=== PATIENT | female | born 1985 | race Hispanic/Latino ===

== ENCOUNTER 2017-12-27 14:15 | Emergency (ER) | payer SELFPAY ==
[2017-12-27 15:10] LABS: Urine Blood 2+ (NEG); Urine Glucose NEGATIVE (NEG); Urine Protein 1+ (NEG)
--- NOTE | 2017-12-27 16:06 | RAD REPORT ---
EXAM DESCRIPTION: CT - Stone Protocol - 12/27/2017 3:40 pm CLINICAL HISTORY: Abdominal pain. Suprapubic pain COMPARISON: None. TECHNIQUE: Computed axial tomography of the abdomen pelvis was obtained without oral or IV contrast. Lack of IV and oral contrast limits evaluation of solid organs, bowel, and vessels. Coronal reformat chinmay images were obtained and reviewed. All CT scans are performed using dose optimization technique as appropriate and may include automated exposure control or mA/KV adjustment according to patient size. FINDINGS: A renal calculus is not seen. An ureteral calculus is not noted. A bladder calculus is not present. The liver, spleen, pancreas and adrenals appear grossly normal There is no evidence of diverticulitis. A tiny umbilical hernia is present. A right ventral hernia within the upper pelvis has a neck of 4.7 centimeters. It contains multiple lo ops of nondilated small bowel. IMPRESSION: Negative for a genitourinary calculus A right ventral hernia within the upper pelvis has a neck of 4.7 centimeters. It contains multiple lo ops of nondilated small bowel.
[2017-12-27 16:26] LABS: Urine Amorphous Sediment TRACE /HPF (NONE SEEN); Urine Bacteria 20-50 /HPF (<20); Urine Culture Reflex Order REFLEXED; Urine RBC 20-50 /HPF (NONE SEEN)
--- NOTE | 2017-12-27 16:43 | ER ---
Nurse's Notes [facility] Name: Vanessa Salinas Age: 32 yrs Sex: Female : 1985 Arrival Date: 12/27/2017 Time: 14:17 Bed 8 Private MD: Diagnosis: Urinary tract infection, site not specified;Ventral hernia without obstruction or gangrene Presentation: 12/27 14:44 Presenting complaint: Patient states: "I thought I had a UTI, but my doctor called in ss some Bactrim and it's been two days, but it hasn't gone away and it's usually gone by now. My son's dad has been out of town for a while and we have been having sex, so I thought that if we stopped, it might go away, but it hasn't." c/o suprapubic pain when walking and itching discomfort while urinating. Transition of care: patient was not received from another setting of care. Onset of symptoms was December 20, 2017. Risk Assessment: Do you want to hurt yourself or someone else? Patient reports no desire to harm self or others. Initial Sepsis Screen: Does the patient meet any 2 criteria? No. Patient's initial sepsis screen is negative. Does the patient have a suspected source of infection? No. Patient's initial sepsis screen is negative. Care prior to arrival: None. 14:44 Method Of Arrival: Ambulatory 14:44 Acuity: MARYCHUY 4 ss Triage Assessment: 14:45 General: Appears in no apparent distress. comfortable, Behavior is calm, cooperative, bp appropriate for age. Pain: Complains of pain in pelvis. 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 - Social history:: Smoking status: Patient/guardian denies using tobacco. - Ebola Screening: : Patient denies exposure to infectious person Patient denies travel to an Ebola-affected area in the 21 days before illness onset. Screenin:45 Abuse screen: Denies threats or abuse. Denies injuries from another. Nutritional bp screening: No deficits noted. Tuberculosis screening: No symptoms or risk factors identified. Fall Risk None identified. Assessment: 14:50 General: Appears in no apparent distress. comfortable, Behavior is calm, cooperative, bp appropriate for age. Pain: Complains of pain in pelvis. Neuro: Level of Consciousness is awake, alert, obeys commands, Oriented to person, place, time, situation, Appropriate for age. Cardiovascular: Rhythm is sinus rhythm. Respiratory: Airway is patent Respiratory effort is even, unlabored, Respiratory pattern is regular, symmetrical. GI: No signs and/or symptoms were reported involving the gastrointestinal system. : Reports burning with urination. EENT: No deficits noted. Derm: No signs and/or symptoms reported regarding the dermatologic system. Musculoskeletal: Circulation, motion, and sensation intact. Range of motion: intact in all extremities. 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 bp 16:00 Reassessment: Patient appears in no apparent distress at this time. Patient and/or hb family updated on plan of care and expected duration. Pain level reassessed. Patient is alert, oriented x 3, equal unlabored respirations, skin warm/dry/pink. 16:58 Reassessment: Patient appears in no apparent distress at this time. Patient and/or hb family updated on plan of care and expected duration. Pain level reassessed. Patient is alert, oriented x 3, equal unlabored respirations, skin warm/dry/pink. Vital Signs: 14:44 BP 111 / 57; Pulse 80; Resp 14; Temp 98.4(O); Pulse Ox 98% on R/A; Weight 90.72 kg; ss Height 5 ft. 0 in. (152.40 cm); Pain 0/10; 15:29 BP 105 / 57; Pulse 53; Resp 14; Pulse Ox 95% ; bp 14:44 Body Mass Index 39.06 (90.72 kg, 152.40 cm) ED Course: 14:17 Patient arrived in ED. tw3 14:28 Mart[facility]ab [facility]C [facility]. snw 14:28 Karri Villagomez MD is Attending Physician. snw 14:41 Esa Linares, KAREN is Primary Nurse. bp 14:44 Arm band placed on right wrist. ss 14:45 Patient has correct armband on for positive identification. Bed in low position. Call bp light in reach. Side rails up X2. 14:48 Triage completed. ss 15:[address] via wheelchair. nj 15:40 CT completed. Patient tolerated procedure well. Patient moved back from CT. nj 15:40 CT Stone Protocol In Process Unspecified. EDMS Administered Medications: 16:57 Drug: Rocephin (cefTRIAXone) 1 grams Route: IM; Site: right gluteus; hb 17:13 Follow up: Response: No adverse reaction Outcome: 16:43 Discharge ordered by MD. swenson 17:16 Patient left the ED. hb Addendum: 12/30/2017 07:43 Addendum: Culture Results: Positive urine culture. No further action required. Bacteria i w sensitive to prescribed antibiotic. Signatures: Dispatcher [employer] EDMS Martine Saab, RAJESH FIRER WATERTENDER-Csnw Eden Adkins, RN KAREN Cheri Greene RN RN ss Linda Barth RN RN Yahir Reed, Ning 3 Esa Linares RN RN bp
--- NOTE | 2017-12-27 16:44 | EDPHYS ---
Physician Documentation [facility] Name: Vanessa Salinas Age: 32 yrs Sex: Female : 1985 Arrival Date: 12/27/2017 Time: 14:17 Bed 8 Private MD: ED Physician Karri Villagomez HPI: 12/27 15:33 This 32 yrs old Female presents to ER via Ambulatory with complaints of snw Urinary Problem. 15:33 The patient presents with abdominal distention distal to umbilicus. Onset: The snw symptoms/episode began/occurred gradually, 1 week(s) ago. Associated signs and symptoms: none. The symptoms are described as vague. Severity of pain: At its worst the pain was mild. The patient has experienced a previous episode. The patient has not recently seen a physician. 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 - Social history:: Smoking status: Patient/guardian denies using tobacco. - Ebola Screening: : Patient denies exposure to infectious person Patient denies travel to an Ebola-affected area in the 21 days before illness onset. ROS: 15:28 Constitutional: Negative for fever, chills, and weight loss, Eyes: Negative for injury, snw pain, redness, and discharge, ENT: Negative for injury, pain, and discharge, Neck: Negative for injury, pain, and swelling, Cardiovascular: Negative for chest pain, palpitations, and edema, Respiratory: Negative for shortness of breath, cough, wheezing, and pleuritic chest pain, Back: Negative for injury and pain, : Negative for injury, bleeding, discharge, and swelling, + dysuria MS/Extremity: Negative for injury and deformity, Skin: Negative for injury, rash, and discoloration, Neuro: Negative for headache, weakness, numbness, tingling, and seizure. 15:28 : Negative for injury, bleeding, discharge, and swelling, + dysuria 15:28 Abdomen/GI: Positive for abdominal pain, abdominal distension. Exam: 15:27 Constitutional: This is a well developed, well nourished patient who is awake, alert, snw and in no acute distress. Head/Face: Normocephalic, atraumatic. Eyes: Pupils equal round and reactive to light, extra-ocular motions intact. Lids and lashes normal. Conjunctiva and sclera are non-icteric and not injected. Cornea within normal limits. Periorbital areas with no swelling, redness, or edema. ENT: Nares patent. No nasal discharge, no septal abnormalities noted. Tympanic membranes are normal and external auditory canals are clear. Oropharynx with no redness, swelling, or masses, exudates, or evidence of obstruction, uvula midline. Mucous membranes moist. Neck: Trachea midline, no thyromegaly or masses palpated, and no cervical lymphadenopathy. Supple, full range of motion without nuchal rigidity, or vertebral point tenderness. No Meningismus. Chest/axilla: Normal chest wall appearance and motion. Nontender with no deformity. No lesions are appreciated. Cardiovascular: Regular rate and rhythm with a normal S1 and S2. No gallops, murmurs, or rubs. Normal PMI, no JVD. No pulse deficits. Respiratory: Lungs have equal breath sounds bilaterally, clear to auscultation and percussion. No rales, rhonchi or wheezes noted. No increased work of breathing, no retractions or nasal flaring. Abdomen/GI: Soft, tender, with normal bowel sounds. No distension or tympany. No guarding or rebound. No evidence of tenderness throughout. ventral hernia noted distal to umbilicus Back: No spinal tenderness. No costovertebral tenderness. Full range of motion. Skin: Warm, dry with normal turgor. Normal color with no rashes, no lesions, and no evidence of cellulitis. MS/ Extremity: Pulses equal, no cyanosis. Neurovascular intact. Full, normal range of motion. Neuro: Awake and alert, GCS 15, oriented to person, place, time, and situation. Cranial nerves II-XII grossly intact. Motor strength 5/5 in all extremities. Sensory grossly intact. Cerebellar exam normal. Normal gait. Psych: Awake, alert, with orientation to person, place and time. Behavior, mood, and affect are within normal limits. Vital Signs: 14:44 BP 111 / 57; Pulse 80; Resp 14; Temp 98.4(O); Pulse Ox 98% on R/A; Weight 90.72 kg; ss Height 5 ft. 0 in. (152.40 cm); Pain 0/10; 15:29 BP 105 / 57; Pulse 53; Resp 14; Pulse Ox 95% ; bp 14:44 Body Mass Index 39.06 (90.72 kg, 152.40 cm) ss MDM: 14:33 Patient medically screened. snw 16:46 Data reviewed: vital signs, nurses notes. Data interpreted: Pulse oximetry: on room air snw is 95 %. Interpretation: acceptable. Counseling: I had a detailed discussion with the patient and/or guardian regarding: the historical points, exam findings, and any diagnostic results supporting the discharge/admit diagnosis, lab results, radiology results, the need for outpatient follow up, to return to the emergency department if symptoms worsen or persist or if there are any questions or concerns that arise at home. Special discussion: Based on the patient's Hx, exam, and Dx evaluation, there is no indication for emergent surgery or inpatient Tx. It is understood by the patient/guardian that if the Sx's persist or worsen they need to return immediately for re-evaluation. Based on the history and exam findings, there is no indication for further emergent testing or inpatient evaluation. I discussed with the patient/guardian the need to see the general surgeon for further evaluation of the symptoms. I discussed with the patient/guardian the need to see the primary care provider for further evaluation of the symptoms. 12/27 14:29 Order name: Urine Microscopic Only; Complete Time: 16:42 snw 12/27 14:57 Order name: Urine Dipstick--Ancillary (enter results); Complete Time: 15:12 ms 12/27 14:57 Order name: Urine --Ancillary (enter results); Complete Time: 15:12 ms 12/27 15:20 Order name: CT Stone Protocol; Complete Time: 16:10 snw 12/27 16:27 Order name: Urine Culture EDMS 12/27 14:29 Order name: Urine Test (obtain specimen); Complete Time: 14:43 snw 12/27 14:29 Order name: Urine Dipstick-Ancillary (obtain specimen); Complete Time: 14:43 snw Administered Medications: 16:57 Drug: Rocephin (cefTRIAXone) 1 grams Route: IM; Site: right gluteus; hb 17:13 Follow up: Response: No adverse reaction hb Disposition: 17:26 Co-signature as Attending Physician, Karri Villagomez MD I agree with the assessment and kdr plan of care. Disposition: 12/27/17 16:43 Discharged to Home. Impression: Urinary tract infection, site not specified, Ventral hernia without obstruction or gangrene. - Condition is Stable. - Discharge Instructions: Hernia, Adult, Urinary Tract Infection, Adult. - Prescriptions for Bentyl 20 mg Oral Tablet - take 1 tablet by ORAL route every 6 hours As needed; 20 tablet. Macrobid 100 mg Oral Capsule - take 1 capsule by ORAL route every 12 hours for 10 days; 20 capsule. - Work release form, Medication Reconciliation Form, Thank You Letter, Antibiotic Education, Prescription Opioid Use form. - Follow up: Private Physician; When: 2 - 3 days; Reason: Recheck today's complaints, Continuance of care, Re-evaluation by your physician. Follow up: Emergency Department; When: As needed; Reason: Worsening of condition. Signatures: Dispatcher [employer] EDNV Karri Villagomez MD MD [facility] Martine Saab, SKILL LABOR-C SKILL LABOR-Csnw Cheri Greene RN RN Linda Barth RN RN hb Corrections: (The following items were deleted from the chart) 15:32 15:28 : Negative for injury, bleeding, discharge, and swelling, snw snw 17:16 16:43 12/27/2017 16:43 Discharged to Home. Impression: Urinary tract infection, site hb not specified; Ventral hernia without obstruction or gangrene. Condition is Stable. Forms are Medication Reconciliation Form, Thank You Letter, Antibiotic Education, Prescription Opioid Use. Follow up: Private Physician; When: 2 - 3 days; Reason: Recheck today's complaints, Continuance of care, Re-evaluation by your physician. Follow up: Emergency Department; When: As needed; Reason: Worsening of condition. snw
[2017-12-27] MEDS ORDERED: CEFTRIAXONE 1000 MG/VIAL ONE (16:55)
== END 2017-12-27 17:16 | disposition home or self-care (01) ==
LOC: ER 14:15
DX: N39.0 Urinary tract infection, site not specified (principal); K43.9 Ventral hernia without obstruction or gangrene; Z88.6 Allergy status to analgesic agent; Z91.040 Latex allergy status; Z91.048 Other nonmedicinal substance allergy status
CPT/HCPCS: 74176; 76377; 81003; 81015; 81025; 87077; 87086; 87088; 87186; 96372; 99284

== ENCOUNTER 2018-02-01 00:50 | Emergency (ER) | payer SELFPAY ==
--- NOTE | 2018-02-01 01:59 | ER ---
Nurse's Notes [facility] Name: Vanessa Salinas Age: 32 yrs Sex: Female : 1985 Arrival Date: 02/01/2018 Time: 00:53 Bed 12 Private MD: Diagnosis: Dental caries; state, incidental Presentation: 02/01 01:14 Presenting complaint: Patient states: she is having left lower jaw pain x 1 week has bb appt with dentist on Friday but pain is too much. Transition of care: patient was not received from another setting of care. Onset of symptoms was January 24, 2018. Risk Assessment: Do you want to hurt yourself or someone else? Patient reports no desire to harm self or others. Initial Sepsis Screen: Does the patient meet any 2 criteria? No. Patient's initial sepsis screen is negative. Does the patient have a suspected source of infection? No. Patient's initial sepsis screen is negative. Care prior to arrival: None. 01:14 Method Of Arrival: Ambulatory bb 01:14 Acuity: MARYCHUY 4 bb Triage Assessment: 01:17 General: Appears uncomfortable, Behavior is calm, cooperative. Pain: Complains of pain bb in left lower jaw Pain currently is 10 out of 10 on a pain scale. EENT: Reports pain in left jaw. Neuro: Level of Consciousness is awake, alert, obeys commands, Oriented to person, place, time, situation. Cardiovascular: No deficits noted. Respiratory: Airway Respiratory effort is even, unlabored, Respiratory pattern is regular, Breath sounds are clear bilaterally. GI: No signs and/or symptoms were reported involving the gastrointestinal system. Derm: Skin is pink, warm \T\ dry. Musculoskeletal: Circulation, motion, and sensation intact. 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 - Social history:: Smoking status: Patient/guardian denies using tobacco, Patient/guardian denies using alcohol, street drugs. - Ebola Screening: : No symptoms or risks identified at this time. Screenin:51 Abuse screen: Denies threats or abuse. Nutritional screening: No deficits noted. bb Tuberculosis screening: No symptoms or risk factors identified. Fall Risk None identified. Assessment: :51 Reassessment: No changes from previously documented assessment. see triage assessment. bb 02:08 Reassessment: Patient is alert, oriented x 3, equal unlabored respirations, skin bb warm/dry/pink. pt verbalized understanding of and agrees to plan of care discharge instructions given pt ambulated with steady gait to exit. Vital Signs: 01:17 BP 120 / 80; Pulse 80; Resp 18 S; Temp 98.9(O); Pulse Ox 97% on R/A; Weight 92.99 kg bb (R); Height 5 ft. 0 in. (152.40 cm) (R); Pain 10/10; 01:17 Body Mass Index 40.04 (92.99 kg, 152.40 cm) bb ED Course: 00:53 Patient arrived in ED. am2 01:16 Triage completed. bb 01:17 Arm band placed on Patient placed in an exam room. bb 01:18 Martine Saab FNP-C is PHCP. snw 01:18 Suzie Huang MD is Attending Physician. snw 01:51 Gladys Guevara RN is Primary Nurse. bb 01:51 Patient has correct armband on for positive identification. Call light in reach. bb 01:51 No provider procedures requiring assistance completed. Patient did not have IV access bb during this emergency room visit. Administered Medications: 01:52 Drug: Augmentin 875 mg Route: PO; bb 02:09 Follow up: Response: No adverse reaction bb Outcome: 01:58 Discharge ordered by . snw 02:09 Discharged to home ambulatory. bb 02:09 Condition: stable 02:09 Discharge instructions given to patient, Instructed on discharge instructions, follow up and referral plans. medication usage, Demonstrated understanding of instructions, follow-up care, medications, Prescriptions given X 3. 02:09 Patient left the ED. bb Signatures: Martine Saab FNP-C ELECTROLYSIS OPERATOR-Csnw Gladys Guevara, RN RN Patricia Hancock am2
--- NOTE | 2018-02-01 01:59 | EDPHYS ---
Physician Documentation [facility] Name: Vanessa Salinas Age: 32 yrs Sex: Female : 1985 Arrival Date: 02/01/2018 Time: 00:53 Bed 12 Private MD: ED Physician Suzie Huang HPI: 02/01 01:50 This 32 yrs old Female presents to ER via Ambulatory with complaints of Dental snw Pain. 01:50 The patient presents with pain. The problem is located in the lower left third molar snw (#17). Onset: The symptoms/episode began/occurred gradually, and became worse today. Duration: The symptoms are continuous. Associated signs and symptoms: The patient has no apparent associated signs or symptoms. Severity of symptoms: At their worst the symptoms were moderate, severe. It is unknown whether or not the patient has had similar symptoms in the past. appt with Dentist scheduled for this Friday. no fever, no vomiting. 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 - Social history:: Smoking status: Patient/guardian denies using tobacco, Patient/guardian denies using alcohol, street drugs. - Ebola Screening: : No symptoms or risks identified at this time. ROS: 01:49 Constitutional: Negative for fever, chills, and weight loss, Eyes: Negative for injury, snw pain, redness, and discharge, ENT: Negative for injury and discharge, + dental pain to left mandibular area Neck: Negative for injury, pain, and swelling, Cardiovascular: Negative for chest pain, palpitations, and edema, Respiratory: Negative for shortness of breath, cough, wheezing, and pleuritic chest pain, Abdomen/GI: Negative for abdominal pain, nausea, vomiting, diarrhea, and constipation, Back: Negative for injury and pain, : Negative for injury, bleeding, discharge, and swelling, MS/Extremity: Negative for injury and deformity, Skin: Negative for injury, rash, and discoloration, Neuro: Negative for headache, weakness, numbness, tingling, and seizure. Exam: 01:48 Constitutional: This is a well developed, well nourished patient who is awake, alert, snw and in no acute distress. Head/Face: Normocephalic, atraumatic. Eyes: Pupils equal round and reactive to light, extra-ocular motions intact. Lids and lashes normal. Conjunctiva and sclera are non-icteric and not injected. Cornea within normal limits. Periorbital areas with no swelling, redness, or edema. Neck: Trachea midline, no thyromegaly or masses palpated, and no cervical lymphadenopathy. Supple, full range of motion without nuchal rigidity, or vertebral point tenderness. No Meningismus. Chest/axilla: Normal chest wall appearance and motion. Nontender with no deformity. No lesions are appreciated. Cardiovascular: Regular rate and rhythm with a normal S1 and S2. No gallops, murmurs, or rubs. Normal PMI, no JVD. No pulse deficits. Respiratory: Lungs have equal breath sounds bilaterally, clear to auscultation and percussion. No rales, rhonchi or wheezes noted. No increased work of breathing, no retractions or nasal flaring. Abdomen/GI: Soft, non-tender, with normal bowel sounds. No distension or tympany. No guarding or rebound. No evidence of tenderness throughout. Back: No spinal tenderness. No costovertebral tenderness. Full range of motion. Skin: Warm, dry with normal turgor. Normal color with no rashes, no lesions, and no evidence of cellulitis. MS/ Extremity: Pulses equal, no cyanosis. Neurovascular intact. Full, normal range of motion. Neuro: Awake and alert, GCS 15, oriented to person, place, time, and situation. Cranial nerves II-XII grossly intact. Motor strength 5/5 in all extremities. Sensory grossly intact. Cerebellar exam normal. Normal gait. Psych: Awake, alert, with orientation to person, place and time. Behavior, mood, and affect are within normal limits. 01:48 ENT: Mouth: is normal, Posterior pharynx: is normal, Dental exam: pain, that is moderate, specifically in the lower left third molar (#17), lower left second molar (#18) and lower left first molar (#19), Voice: is normal. Vital Signs: 01:17 BP 120 / 80; Pulse 80; Resp 18 S; Temp 98.9(O); Pulse Ox 97% on R/A; Weight 92.99 kg bb (R); Height 5 ft. 0 in. (152.40 cm) (R); Pain 10/10; 01:17 Body Mass Index 40.04 (92.99 kg, 152.40 cm) bb MDM: 01:29 Patient medically screened. snw 01:56 Data reviewed: vital signs, nurses notes. Data interpreted: Pulse oximetry: on room air snw is 97 %. Interpretation: normal. Counseling: I had a detailed discussion with the patient and/or guardian regarding: the historical points, exam findings, and any diagnostic results supporting the discharge/admit diagnosis, the presence of at least one elevated blood pressure reading (>120/80) during this emergency department visit, the need for outpatient follow up, for definitive care, to return to the emergency department if symptoms worsen or persist or if there are any questions or concerns that arise at home. Special discussion: I have referred the patient to see his PCP for further evaluation of high blood pressure. Based on the history and exam findings, there is no indication for further emergent testing or inpatient evaluation. I discussed with the patient/guardian the need to see the OB Gyne specialist for further evaluation of the symptoms. I discussed with the patient/guardian the need to see the primary care provider for further evaluation of the symptoms. 02/01 02:03 Order name: Urine Dipstick--Ancillary (enter results) ar5 02/01 01:45 Order name: Urine Test (obtain specimen); Complete Time: 02:02 snw 02/01 01:45 Order name: Urine Dipstick-Ancillary (obtain specimen); Complete Time: 02:02 snw Administered Medications: 01:52 Drug: Augmentin 875 mg Route: PO; bb 02:09 Follow up: Response: No adverse reaction bb Disposition: 06:00 Co-signature as Attending Physician, Suzie Huang MD. ma2 Disposition: 02/01/18 01:58 Discharged to Home. Impression: Dental caries, state, incidental. - Condition is Stable. - Discharge Instructions: Dental Pain, First Trimester of , Diet and Dental Disease. - Prescriptions for chlorhexidine gluconate 0.12 % Mucous Membrane mouthwash - place 15 milliliter by MUCOUS MEMBRANE route 2 times per day after brushing teeth, swish in mouth for 30 seconds then spit out; 480 milliliter. Augmentin 500- 125 mg Oral Tablet - take 1 tablet by ORAL route every 8 hours for 10 days; 30 tablet. Vitamin 27- 0.8 mg Oral Tablet - take 1 tablet by ORAL route once daily; 60 tablet. - Medication Reconciliation Form, Thank You Letter, Antibiotic Education, Prescription Opioid Use form. - Follow up: Private Physician; When: 2 - 3 days; Reason: Recheck today's complaints, Continuance of care, Re-evaluation by your physician. Follow up: Emergency Department; When: As needed; Reason: Worsening of condition. Signatures: Dispatcher [employer] EDMartine Duong FNP-C FNP-Gladys Leon RN RN Suzie Duckworth MD MD ma2 Corrections: (The following items were deleted from the chart) 02:09 01:58 02/01/2018 01:58 Discharged to Home. Impression: Dental caries; state, bb incidental. Condition is Stable. Forms are Medication Reconciliation Form, Thank You Letter, Antibiotic Education, Prescription Opioid Use. Follow up: Private Physician; When: 2 - 3 days; Reason: Recheck today's complaints, Continuance of care, Re-evaluation by your physician. Follow up: Emergency Department; When: As needed; Reason: Worsening of condition. snw
[2018-02-01] MEDS ORDERED: AMOX/K CLAV 875 MG TAB ONE (02:03)
[2018-02-01 03:44] LABS: Urine Blood NEGATIVE (NEG); Urine Glucose NEGATIVE (NEG); Urine Protein TRACE (NEG); Urine Specific Gravity >1.030 (1.005-1.030); Urine pH 5.5 (5.0-7.0)
== END 2018-02-01 02:09 | disposition home or self-care (01) ==
LOC: ER 00:50
DX: K02.9 Dental caries, unspecified (principal); Z33.1 Pregnant state, incidental
CPT/HCPCS: 81003; 99283

== ENCOUNTER 2018-02-07 19:46 | Emergency (ER) | payer OTHER, SELFPAY ==
--- NOTE | 2018-02-07 20:45 | EDPHYS ---
Physician Documentation [facility] Name: Vanessa Salinas Age: 32 yrs Sex: Female : 1985 Arrival Date: 02/07/2018 Time: 19:49 Bed 13 Private MD: ED Physician Rock Dodge HPI: 02/07 20:42 This 32 yrs old Female presents to ER via Ambulatory with complaints of Fall kb Injury. 20:42 Details of fall: The patient fell from an upright position. Onset: The symptoms/episode kb began/occurred at 16:00. Associated injuries: The patient sustained injury to the chest, specifically the diaphragm, pain with movement. Severity of symptoms: At their worst the symptoms were mild, in the emergency department the symptoms are unchanged. The patient has not experienced similar symptoms in the past. The patient has not recently seen a physician. Pt fell up the stairs and hit diaphram area on upper step. c/o pain that is intermittent. Reports she is 6 weeks so she wanted to make sure everything was ok with baby. Denies lower abd pain or vaginal bleeding. 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, Verified, EDC 09/30/2018, Gestational age from LMP: 6 weeks 4 ak1 days Historical: - Allergies: 20:04 NSAIDS; ak1 20:04 Latex, Natural Rubber; ak1 - Home Meds: 20:04 Vitamin Oral [Active]; ak1 - PMHx: 20:04 Avalos's Palsy; ak1 - PSHx: 20:04 ; ak1 ROS: 20:40 Constitutional: Negative for fever, chills, and weight loss, Cardiovascular: Negative kb for chest pain, palpitations, and edema, Respiratory: Negative for shortness of breath, cough, wheezing, and pleuritic chest pain, Back: Negative for injury and pain, MS/Extremity: Negative for injury and deformity, Skin: Negative for injury, rash, and discoloration, Neuro: Negative for headache, weakness, numbness, tingling, and seizure. 20:40 Abdomen/GI: Positive for abdominal pain. Exam: 20:41 Constitutional: This is a well developed, well nourished patient who is awake, alert, kb and in no acute distress. Head/Face: Normocephalic, atraumatic. ENT: Nares patent. No nasal discharge, no septal abnormalities noted. Tympanic membranes are normal and external auditory canals are clear. Oropharynx with no redness, swelling, or masses, exudates, or evidence of obstruction, uvula midline. Mucous membranes moist. Neck: Trachea midline, no thyromegaly or masses palpated, and no cervical lymphadenopathy. Supple, full range of motion without nuchal rigidity, or vertebral point tenderness. No Meningismus. Cardiovascular: Regular rate and rhythm with a normal S1 and S2. No gallops, murmurs, or rubs. Normal PMI, no JVD. No pulse deficits. Respiratory: Lungs have equal breath sounds bilaterally, clear to auscultation and percussion. No rales, rhonchi or wheezes noted. No increased work of breathing, no retractions or nasal flaring. Abdomen/GI: Soft, non-tender, with normal bowel sounds. No distension or tympany. No guarding or rebound. No evidence of tenderness throughout. Back: No spinal tenderness. No costovertebral tenderness. Full range of motion. Skin: Warm, dry with normal turgor. Normal color with no rashes, no lesions, and no evidence of cellulitis. MS/ Extremity: Pulses equal, no cyanosis. Neurovascular intact. Full, normal range of motion. Neuro: Awake and alert, GCS 15, oriented to person, place, time, and situation. Cranial nerves II-XII grossly intact. Motor strength 5/5 in all extremities. Sensory grossly intact. Cerebellar exam normal. Normal gait. 20:41 Chest/axilla: Inspection: normal, Palpation: tenderness, that is mild, of the kb diaphragm. Vital Signs: 20:04 BP 123 / 59; Pulse 89; Resp 18; Temp 98; Pulse Ox 99% on R/A; Weight 90.72 kg; Height 5 ak1 ft. 0 in. (152.40 cm); Pain 7/10; 21:10 BP 114 / 76; Pulse 76; Resp 16; Pulse Ox 100% on R/A; jb4 20:04 Body Mass Index 39.06 (90.72 kg, 152.40 cm) ak1 MDM: 20:17 Patient medically screened. kb 20:41 Data reviewed: vital signs, nurses notes. Data interpreted: Pulse oximetry: on room air kb is 99 %. Interpretation: normal. Counseling: I had a detailed discussion with the patient and/or guardian regarding: the historical points, exam findings, and any diagnostic results supporting the discharge/admit diagnosis, the need for outpatient follow up, a family practitioner, to return to the emergency department if symptoms worsen or persist or if there are any questions or concerns that arise at home. Administered Medications: No medications were administered Disposition: 02/08 05:31 Co-signature as Attending Physician, Rock Dodge MD. rn Disposition: 02/07/18 20:44 Discharged to Home. Impression: Fall on same level from slipping, tripping and stumbling, Contusion of unspecified front wall of thorax. - Condition is Stable. - Discharge Instructions: Musculoskeletal Pain, Chest Contusion, [id number]. - Work release form, Medication Reconciliation Form, Thank You Letter, Antibiotic Education, Prescription Opioid Use form. - Follow up: Emergency Department; When: As needed; Reason: Worsening of condition. Follow up: Private Physician; When: 2 - 3 days; Reason: Recheck today's complaints, Continuance of care, Re-evaluation by your physician. Signatures: Adrianne Jovel, PHYSICAL THERAPIST-C PHYSICAL THERAPIST-Ckb Rock Dodge MD MD rn Krenek, Amber, RN RN ak1 Pj Anderson, KAREN RN jb4 Corrections: (The following items were deleted from the chart) 02/07 20:42 20:41 Constitutional: This is a well developed, well nourished patient who is awake, kb alert, and in no acute distress. Head/Face: Normocephalic, atraumatic. Chest/axilla: Normal chest wall appearance and motion. Nontender with no deformity. No lesions are appreciated. Cardiovascular: Regular rate and rhythm with a normal S1 and S2. No gallops, murmurs, or rubs. Normal PMI, no JVD. No pulse deficits. Respiratory: Lungs have equal breath sounds bilaterally, clear to auscultation and percussion. No rales, rhonchi or wheezes noted. No increased work of breathing, no retractions or nasal flaring. Back: No spinal tenderness. No costovertebral tenderness. Full range of motion. Skin: Warm, dry with normal turgor. Normal color with no rashes, no lesions, and no evidence of cellulitis. MS/ Extremity: Pulses equal, no cyanosis. Neurovascular intact. Full, normal range of motion. Neuro: Awake and alert, GCS 15, oriented to person, place, time, and situation. Cranial nerves II-XII grossly intact. Motor strength 5/5 in all extremities. Sensory grossly intact. Cerebellar exam normal. Normal gait. kb 20:42 20:41 Abdomen/GI: Inspection: abdomen appears normal, Bowel sounds: normal, in all kb quadrants, Palpation: abdomen is soft and non-tender, 21:16 20:10 Urine Dipstick-Ancillary ordered. [facility] 21:16 20:10 Urine Test ordered. jb4 21:18 20:44 02/07/2018 20:44 Discharged to Home. Impression: Fall on same level from jb4 slipping, tripping and stumbling; Contusion of unspecified front wall of thorax. Condition is Stable. Forms are Medication Reconciliation Form, Thank You Letter, Antibiotic Education, Prescription Opioid Use. Follow up: Emergency Department; When: As needed; Reason: Worsening of condition. Follow up: Private Physician; When: 2 - 3 days; Reason: Recheck today's complaints, Continuance of care, Re-evaluation by your physician. kb
--- NOTE | 2018-02-07 20:45 | ER ---
Nurse's Notes [facility] Name: Vanessa Salinas Age: 32 yrs Sex: Female : 1985 Arrival Date: 02/07/2018 Time: 19:49 Bed 13 Private MD: Diagnosis: Fall on same level from slipping, tripping and stumbling;Contusion of unspecified front wall of thorax Presentation: 02/07 20:03 Presenting complaint: Patient states: tripped going up stairs, hitting chest and ak1 epigastric area. pt is 6 weeks . pt denies vaginal bleeding. Transition of care: patient was not received from another setting of care. Onset of symptoms was February 07, 2018. Care prior to arrival: None. 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 Nutritional screening: No deficits noted. jb4 Tuberculosis screening: No symptoms or risk factors identified. Assessment: 21:10 General: Appears in no apparent distress. comfortable, Behavior is calm, cooperative, jb4 appropriate for age. Pain: Complains of pain in epigastric area Pain does not radiate. Pain currently is 7 out of 10 on a pain scale. Quality of pain is described as aching. Neuro: Level of Consciousness is awake, alert, obeys commands, Oriented to person, place, time, situation. Cardiovascular: Patient's skin is warm and dry. Respiratory: Airway is patent Respiratory effort is even, unlabored, Respiratory pattern is regular, symmetrical. GI: No signs and/or symptoms were reported involving the gastrointestinal system. : No signs and/or symptoms were reported regarding the genitourinary system. EENT: No signs and/or symptoms were reported regarding the EENT system. Derm: Skin is intact, Skin is pink, warm \T\ dry. Musculoskeletal: Circulation, motion, and sensation intact. Vital Signs: 20:04 BP 123 / 59; Pulse 89; Resp 18; Temp 98; Pulse Ox 99% on R/A; Weight 90.72 kg; Height 5 ak1 ft. 0 in. (152.40 cm); Pain 7/10; 21:10 BP 114 / 76; Pulse 76; Resp 16; Pulse Ox 100% on R/A; jb4 20:04 Body Mass Index 39.06 (90.72 kg, 152.40 cm) ak1 ED Course: 19:49 Patient arrived in ED. al2 20:04 Triage completed. ak1 20:04 Arm band placed on Patient placed in waiting room. ak1 20:17 Adrian[facility] kb 20:17 Rock Dodge MD is Attending Physician. kb 21:09 Pj Anderson, RN is Primary Nurse. jb4 21:10 Patient has correct armband on for positive identification. Bed in low position. Call jb4 light in reach. Side rails up X 1. Pulse ox on. NIBP on. 21:10 No provider procedures requiring assistance completed. Patient did not have IV access jb4 during this emergency room visit. Administered Medications: No medications were administered Outcome: 20:44 Discharge ordered by MD. kb 21:17 Discharged to home ambulatory. jb4 21:17 Condition: stable 21:17 Discharge instructions given to patient, Instructed on discharge instructions, follow up and referral plans. Demonstrated understanding of instructions, follow-up care. 21:18 Patient left the ED. jb4 Signatures: Adrianne Jovel FNP-C FNP-Ckb Krenek, Amber, RN RN ak1 Pj Anderson, RN RN jb4 Karen Montiel [facility]
== END 2018-02-07 21:18 | disposition home or self-care (01) ==
LOC: ER 19:46
DX: S20.219A Contusion of unspecified front wall of thorax, initial encounter (principal); W10.8XXA Fall (on) (from) other stairs and steps, initial encounter; Z33.1 Pregnant state, incidental
CPT/HCPCS: 99283